=== PATIENT | female | born 1980 | race Hispanic/Latino ===

== ENCOUNTER 2017-07-13 16:02 | Emergency (ER) | payer MEDICAID ==
[~2017-07-13] VITALS: Ht 162.6 cm; Wt 76.0 kg
[~2017-07-13 16:02] MED LIST: AUGMENTIN875 MG OR; FLAGYL500 MG PO; INTEGRA F PO; JOLESSA PO; NO HOME MEDS; NORCO1 TA1 PO; PRENATAL1 TAB OR; PREVACID30 M2 OR; REGLAN10 MG OR; ULTRAM50 M1 PO
[2017-07-13 17:18] LABS: HEMATOCRIT 38.6 % (37.0-47.0); IMMATURE GRANULOCYTES 0.5 % (0.0-1.0); MEAN CELL VOLUME 92.3 fL CALC (80.0-100.0); MEAN CORPUSCULAR HGB 31.1 pG CALC (26.0-32.0); MEAN CORPUSCULAR HGB CONC 33.7 g/L CALC (32.0-36.0); RED BLOOD COUNT 4.18 mill/uL (4.20-5.60); RED CELL DISTRI WIDTH 12.3 % (11.5-15.5)
[2017-07-13 17:19] LABS: URINE BILIRUBIN - DIPSTICK NEGATIVE (NEGATIVE); URINE BLOOD DIPSTICK SMALL (NEGATIVE); URINE COLOR YELLOW; URINE GLUCOSE - DIPSTICK NEGATIVE (NEGATIVE); URINE KETONE NEGATIVE (NEGATIVE); URINE NITRITE - DIPSTICK NEGATIVE (Negative); URINE PH 6.5 (4.5-8.0); URINE PROTEIN - DIPSTICK 30 mg/dL (NEG-TRACE); URINE UROBILINOGEN - DIPSTICK 0.2 E.U./dL (0.2)
[2017-07-13 17:21] LABS: URINE CLARITY CLOUDY; URINE LEUK ESTERASE SMALL (NEGATIVE)
[2017-07-13 17:25] LABS: URINE SQUAMOUS EPITHELIAL CELL FEW EPI/hpf (0-FEW); URINE WBC 50-100 WBC/hpf (0-5)
[2017-07-13 17:30] LABS: ALBUMIN 4.4 g/dL (3.2-5.0); ALKALINE PHOSPHATASE 81 u/l (38-126); ANION GAP 17 (6-22 (CALC)); BILIRUBIN, TOTAL 0.4 mg/dL (0.0-1.4); BUN 12 mg/dL (7-17); BUN/CREATININE RATIO 15 (12-20 (CALC)); CARBON DIOXIDE 25 mmol/l (22-30); CHLORIDE 105 mmol/l (95-108); CREATININE 0.8 mg/dL (0.5-1.0); GFR > 60 ML/MIN (>=60 (CALC)); GFR FOR AFR.AMER. > 60 ML/MIN (>=60 (CALC)); SGOT/AST 21 u/l (14-36); SGPT/ALT 20 u/l (9-52); SODIUM 142 mmol/l (137-146); TOTAL PROTEIN 7.4 g/dL (6.3-8.2)
[2017-07-13] MEDS ORDERED: PYRIDIUM200 MG PO (17:41)
[2017-07-13] MEDS ORDERED: SEPTRA4001 PO (17:41)
[2017-07-13 17:47] VITALS: BP 142/79
== END 2017-07-13 17:53 | disposition home or self-care (01) | DRG 690 ==
LOC: ED 16:02
PROVIDERS: Emergency Medicine
DX: N39.0 Urinary tract infection, site not specified (principal); B96.20 Unspecified Escherichia coli [E. coli] as the cause of diseases classified elsewhere; R10.31 Right lower quadrant pain; R50.9 Fever, unspecified

== ENCOUNTER 2019-06-09 | Emergency (ER) | payer MEDICAID ==
[~2019-06-09] MED LIST changes: +PYRIDIUM200 MG PO; +SEPTRA4001 PO
[2019-06-09 12:53] LABS: HEMATOCRIT 40.6 % (37.0-47.0); HEMOGLOBIN 13.5 g/dl (12.0-16.0); IMMATURE GRANULOCYTES 0.4 % (0.0-5.0); MEAN CELL VOLUME 92.5 fL CALC (80.0-100.0); MEAN CORPUSCULAR HGB 30.8 pG CALC (26.0-32.0); MEAN CORPUSCULAR HGB CONC 33.3 g/L CALC (32.0-36.0); NEUT# 6.05 thou/uL (2.00-7.15); RED BLOOD COUNT 4.39 mill/uL (4.20-5.60); RED CELL DISTRI WIDTH 11.8 % (11.5-15.5)
[2019-06-09 12:57] LABS: URINE BILIRUBIN - DIPSTICK NEGATIVE (NEGATIVE); URINE BLOOD DIPSTICK NEGATIVE (NEGATIVE); URINE COLOR YELLOW; URINE GLUCOSE - DIPSTICK NEGATIVE (NEGATIVE); URINE KETONE NEGATIVE (NEGATIVE); URINE LEUK ESTERASE NEGATIVE (NEGATIVE); URINE NITRITE - DIPSTICK NEGATIVE (Negative); URINE PROTEIN - DIPSTICK NEGATIVE (NEG-TRACE); URINE UROBILINOGEN - DIPSTICK 0.2 E.U./dL (0.2)
[2019-06-09 13:12] LABS: ALBUMIN 4.5 g/dL (3.2-5.0); ALKALINE PHOSPHATASE 59 u/l (38-126); ANION GAP 14 (6-22 (CALC)); BILIRUBIN, TOTAL 0.8 mg/dL (0.0-1.4); BUN 10 mg/dL (7-17); BUN/CREATININE RATIO 15 (12-20 (CALC)); CARBON DIOXIDE 23 mmol/l (22-30); CHLORIDE 106 mmol/l (95-108); CREATININE 0.7 mg/dL (0.5-1.0); GFR > 60 ML/MIN (>=60 (CALC)); GFR FOR AFR.AMER. > 60 ML/MIN (>=60 (CALC)); POTASSIUM 4.3 mmol/l (3.5-5.1); SGOT/AST 25 u/l (14-36); SODIUM 138 mmol/l (137-146); TOTAL PROTEIN 7.9 g/dL (6.3-8.2)
[2019-06-09] MEDS ORDERED: CLEOCIN300 MG PO (14:00)
[2019-06-09] MEDS ORDERED: LORTAB 1010 MG PO (14:00)
== END 2019-06-09 14:20 | disposition home or self-care (01) ==
PROVIDERS: Emergency Medicine
DX: K04.7 Periapical abscess without sinus (principal)

== ENCOUNTER 2019-11-12 13:45 | Emergency (ER) | payer SELFPAY ==
[~2019-11-12 13:45] MED LIST changes: +CLEOCIN300 MG PO; +LORTAB 1010 MG PO
[2019-11-12 14:00] VITALS: BP 130/90
[2019-11-12] MEDS ORDERED: JOLESSA PO (14:29)
--- NOTE | 2019-11-15 07:14 | NUR ---
Called COVID positive results to patient, [facility] has contacted her with instruction.
== END 2019-11-12 15:45 | disposition home or self-care (01) | DRG 179 ==
LOC: ED 13:45
DX: U07.1 COVID-19 (principal); J06.9 Acute upper respiratory infection, unspecified